=== PATIENT | male | born 1965 | race African-American/Black ===

== ENCOUNTER 2020-03-17 15:20 | Emergency (ER) | payer MEDICAID ==
[~2020-03-17] VITALS: Ht 182.9 cm; Wt 84.0 kg
[2020-03-17] MEDS ORDERED: IBUPROFEN 600MG TABLET PO NR (15:45)
[2020-03-17] MEDS ORDERED: LIDOCAINE HCL/PF 1% 10 MG/ML 5ML VIAL IJ ONE (16:45)
[2020-03-17] MEDS ORDERED: CLONIDINE 0.1MG TABLET PO ONE (18:15)
[2020-03-17 18:57] VITALS: BP 199/102
== END 2020-03-17 18:58 | disposition home or self-care (01) ==
LOC: ER 15:20
DX: S61.210A Laceration without foreign body of right index finger without damage to nail, initial encounter (principal); W22.8XXA Striking against or struck by other objects, initial encounter; Y93.89 Activity, other specified; Y92.89 Other specified places as the place of occurrence of the external cause; Y99.8 Other external cause status; I10 Essential (primary) hypertension
CPT/HCPCS: 73120; 99283; J3490

== ENCOUNTER 2020-05-20 11:03 | Emergency (ER) | payer MEDICAID ==
[~2020-05-20] VITALS: Ht 182.9 cm; Wt 84.0 kg
[2020-05-20] MEDS ORDERED: ACETAMINOPHEN 325MG TABLET PO ONE (12:00)
[2020-05-20 13:05] VITALS: BP 150/78
== END 2020-05-20 13:40 | disposition home or self-care (01) ==
LOC: ER 11:03
DX: S06.0X0A Concussion without loss of consciousness, initial encounter (principal); I10 Essential (primary) hypertension; V43.52XA Car driver injured in collision with other type car in traffic accident, initial encounter; Y93.89 Activity, other specified; Y92.488 Other paved roadways as the place of occurrence of the external cause
CPT/HCPCS: 99282

== ENCOUNTER 2021-08-22 16:27 | Emergency (ER) | payer MEDICAID ==
[~2021-08-22] VITALS: Ht 182.9 cm; Wt 83.0 kg
[2021-08-22] MEDS ORDERED: IBUPROFEN 600MG TABLET PO ONE (16:45)
[2021-08-22 17:09] VITALS: BP 184/117
[2021-08-22] MEDS ORDERED: TOPUD MT (17:47)
== END 2021-08-22 18:00 | disposition home or self-care (01) ==
LOC: ER 16:27
DX: M54.2 Cervicalgia (principal); M62.838 Other muscle spasm; I10 Essential (primary) hypertension; Z91.14 Patient's other noncompliance with medication regimen
CPT/HCPCS: 72040; 99283

== ENCOUNTER 2022-02-16 10:25 | Emergency (ER) | payer MEDICAID ==
[~2022-02-16] VITALS: Ht 182.9 cm; Wt 85.0 kg
[~2022-02-16 10:25] MED LIST: TOPUD MT
[2022-02-16 10:33] VITALS: BP 211/145
[2022-02-16] MEDS ORDERED: LIDOCAINE 5% PATCH TOP SCH (11:00)
[2022-02-16] MEDS ORDERED: BACLOFEN 10MG TABLET PO ONE (11:00)
[2022-02-16] MEDS ORDERED: HYDROCODONE/ACETAMINOPHEN 5/325MG TABLET PO ONE (11:00)
[2022-02-16 11:46] LABS: CLARITY URINE CLEAR (CLEAR); COLOR URINE YELLOW (YELLOW); KETONES URINE TRACE (NEGATIVE); LEUKOCYTE ESTERASE URINE TRACE (NEGATIVE); NITRITE URINE NEGATIVE (NEGATIVE); OCCULT BLOOD URINE NEGATIVE (NEGATIVE); PH URINE 5.5 (4.5-8.0); PROTEIN URINE TRACE (NEGATIVE); SPECIFIC GRAVITY URINE 1.025 (1.005-1.030)
[2022-02-16 11:59] LABS: CHLORIDE 110 mEq/L (98-107)
[2022-02-16 12:05] LABS: BASOPHILS % 0.9 % (0.0-2.0); EOSINOPHILS % 1.9 % (0.0-5.0); HEMATOCRIT. 38.9 % (42.0-52.0); MEAN CORPUSCULAR HEMOGLOBIN 29.6 pg (28.0-32.0); MEAN CORPUSCULAR VOLUME 88.8 fL (80.0-94.0); MEAN PLATELET VOLUME 8.9 fl (7.4-10.4); MONOCYTES % 8.2 % (2.0-8.0); PLATELET 162 x1000/uL (130-400); RED BLOOD CELL COUNT 4.38 mill/uL (4.7-6.1); RED CELL DISTRIBUTION WIDTH 13.9 % (11.6-14.6)
[2022-02-16 12:06] LABS: *AMPHETAMINES SCREEN URINE NEGATIVE (NEGATIVE); *BARBITURATES SCREEN URINE NEGATIVE (NEGATIVE); *BENZODIAZEPINES SCREEN URINE NEGATIVE (NEGATIVE); *COCAINE SCREEN URINE NEGATIVE (NEGATIVE); CANNABINOID URINE SCREEN PRESUMTIVE POSITIVE (NEGATIVE); METHADONE URINE SCREEN NEGATIVE (NEGATIVE); OPIATES URINE SCREEN NEGATIVE (NEGATIVE); PHENCYCLIDINE URINE SCREEN NEGATIVE (NEGATIVE)
[2022-02-16 12:25] LABS: CREATINE KINASE 126 IU/L (39-308)
[2022-02-16] MEDS ORDERED: LIDO700A15 TP (13:12)
[2022-02-16] MEDS ORDERED: IBUP-2029 MT (13:12)
[2022-02-16] MEDS ORDERED: BACL-141 MT (13:12)
== END 2022-02-16 13:32 | disposition home or self-care (01) ==
LOC: ER 10:25
DX: M54.50 Low back pain, unspecified (principal); R03.0 Elevated blood-pressure reading, without diagnosis of hypertension
CPT/HCPCS: 36415; 72131; 80048; 80305; 81003; 82550; 85025; 99284

== ENCOUNTER 2022-05-21 13:56 | Emergency (ER) | payer MEDICAID ==
[~2022-05-21] VITALS: Ht 182.9 cm; Wt 84.0 kg
[~2022-05-21 13:56] MED LIST changes: +BACL-141 MT; +IBUP-2029 MT; +LIDO700A15 TP
[2022-05-21 14:13] VITALS: BP 159/104
[2022-05-21] MEDS ORDERED: KETOROLAC 60MG/2ML VIAL IM ONE (15:30)
[2022-05-21 15:58] LABS: CLARITY URINE CLEAR (CLEAR); COLOR URINE DARK YELLOW (YELLOW); KETONES URINE 1+ (NEGATIVE); LEUKOCYTE ESTERASE URINE 1+ (NEGATIVE); NITRITE URINE NEGATIVE (NEGATIVE); OCCULT BLOOD URINE NEGATIVE (NEGATIVE); PH URINE 5.5 (4.5-8.0); PROTEIN URINE 1+ (NEGATIVE); SPECIFIC GRAVITY URINE 1.027 (1.005-1.030)
[2022-05-21] MEDS ORDERED: IBUP-2029 MT (17:07)
[2022-05-21] MEDS ORDERED: CIPR-264 MT (17:11)
== END 2022-05-21 17:44 | disposition home or self-care (01) ==
LOC: ER 13:56
DX: N43.3 Hydrocele, unspecified (principal); Z98.890 Other specified postprocedural states
CPT/HCPCS: 76870; 81003; 93976; 96372; 99284; J1885

== ENCOUNTER 2024-01-31 01:16 | Emergency (ER) | payer MEDICAID ==
[~2024-01-31] VITALS: Ht 182.9 cm; Wt 77.0 kg
[~2024-01-31 01:16] MED LIST changes: +CIPR-264 MT
[2024-01-31 01:36] VITALS: BP 164/88; PULSE 91; RESP 16; TEMP 98.2; O2SAT 100
[2024-01-31] MEDS ORDERED: IBUPROFEN 600MG TABLET PO ONE (03:00)
== END 2024-01-31 03:15 | disposition home or self-care (01) ==
LOC: ER 01:26
DX: R10.32 Left lower quadrant pain (principal); I10 Essential (primary) hypertension
CPT/HCPCS: 73502; 99283

== ENCOUNTER 2024-11-28 19:40 | Emergency (ER) | payer MEDICAID, OTHER ==
[~2024-11-28 19:40] MED LIST changes: +LIDO-53 TP; -LIDO700A15 TP
[2024-11-28 19:46] VITALS: PULSE 67; RESP 18; O2SAT 99
== END 2024-11-28 20:00 | disposition left against medical advice (07) ==
LOC: ER 19:40
DX: S59.801A Other specified injuries of right elbow, initial encounter (principal); Z53.21 Procedure and treatment not carried out due to patient leaving prior to being seen by health care provider; X58.XXXA Exposure to other specified factors, initial encounter; Y93.89 Activity, other specified; Y92.89 Other specified places as the place of occurrence of the external cause; Y99.8 Other external cause status

== ENCOUNTER 2025-02-17 09:00 | Emergency (ER) | payer MEDICAID ==
[~2025-02-17] VITALS: Ht 182.9 cm; Wt 81.0 kg
[2025-02-17 09:03] VITALS: PULSE 82; RESP 18; O2SAT 99
[2025-02-17 09:08] VITALS: BP 206/122; TEMP 36.8; O2SAT 99
[2025-02-17] MEDS ORDERED: IBUP-2029 MT (09:46)
== END 2025-02-17 10:18 | disposition home or self-care (01) ==
LOC: ER 09:00
DX: M65.242 Calcific tendinitis, left hand (principal); R03.0 Elevated blood-pressure reading, without diagnosis of hypertension; F41.9 Anxiety disorder, unspecified; Z79.899 Other long term (current) drug therapy
CPT/HCPCS: 29130; 73130; 99283